=== PATIENT | male | born 1990 | race Two or more races ===

== ENCOUNTER 2019-09-22 21:27 | Emergency (ER) | payer BC, MEDICAID ==
[~2019-09-22] VITALS: Ht 180.3 cm; Wt 72.6 kg
[2019-09-22 21:28] VITALS: BP_SYST 120
--- NOTE | 2019-09-22 21:28 | NUR ---
Patient to [facility] for evaluation. Side rails up.
--- NOTE | 2019-09-22 21:30 | NUR ---
ER Dr. Montgomery at bedside examining patient.
--- NOTE | 2019-09-22 21:31 | NUR ---
Patient brought in by [facility]'s department for medical clearance. Patient reports taking heroine and abrasions on face. denies any pain. No other complaints/injuries per patient or as noted. Will continue to monitor.
--- NOTE | 2019-09-22 21:49 | NUR ---
Patient and deputy given written and verbal discharge instructions and verbalizes understanding. ER MD discussed with patient the results and treatment provided. Patient in stable condition. ID arm band removed. No Rx given. Patient educated on pain management and to follow up with PMD. Pain Scale 0/10 Opportunity for questions provided and answered. Medication side effect fact sheet provided.
[2019-09-22] MEDS ORDERED: BACITRACIN 1 GM OINT TP ONE (22:00)
[2019-09-22 23:15] VITALS: BP_SYST 120
== END 2019-09-22 21:49 ==
LOC: SED 21:27
DX: F11.10 Opioid abuse, uncomplicated (principal); F15.10 Other stimulant abuse, uncomplicated; F17.210 Nicotine dependence, cigarettes, uncomplicated; Z13.89 Encounter for screening for other disorder; Z02.89 Encounter for other administrative examinations; Z88.0 Allergy status to penicillin
CPT/HCPCS: 99283

== ENCOUNTER 2023-01-01 14:22 | Inpatient (IN) | payer MEDICAID ==
[~2023-01-01] VITALS: Ht 180.3 cm; Wt 65.3 kg
[2023-01-01 14:46] VITALS: BP_SYST 131
--- NOTE | 2023-01-01 14:54 | NUR ---
PT BIBA FOR RIGHT FOOT PAIN. PT IS AWAKE, A/O X4 AND VERBALLY RESPONSIVE. PT REPORTS HAVING RIGHT FOOT PAIN AND SWELLING X 1 WEEK, HOWEVER PAIN HAS NOW WORSENED. RIGHT FOOT NOTED WITH REDNESS AND SWELLING AND MULTIPLE SCABS TO DORSAL ASPECT OF RIGHT FOOT AND SWELLING TO RIGHT ANKLE. PT DENIES ANY RECENT INJURIES. PT PLACED IN BED 4. MD HARRISON MADE AWARE. SAFETY MEASURES IN PLACE
[2023-01-01] MEDS ORDERED: NACL 0.9% 1,000 ML IV ONE (15:00)
--- NOTE | 2023-01-01 15:07 | NUR ---
ER at bedside examining patient.
--- NOTE | 2023-01-01 15:48 | NUR ---
# 22 gauge angiocath placed to Left wrist. Use of asceptic technique. Opsite placed over site. Blood return noted. Flushed with 10 cc of normal saline. No evidence of infiltration noted. Patient tolerated well.
[2023-01-01] MEDS ORDERED: VANCOMYCIN HCL 1000 MG/VIAL IV ONE (15:56)
[2023-01-01] MEDS ORDERED: VANCOMYCIN HCL 1,000 MG in D5W 250 ML IV ONE (16:00)
[2023-01-01] MEDS ORDERED: MORPHINE 4 MG INJ. 4 MG/ML VIAL IVP ONE (16:00)
[2023-01-01 16:24] LABS: HEMATOCRIT 33.5 % (36-54); HEMOGLOBIN 11.6 g/dL (14.0-18.0); MEAN CORPUSCULAR HEMOGLOBIN 29 pg (27-31); MEAN CORPUSCULAR HGB CONC 35 % (32-36); MEAN CORPUSCULAR VOLUME 82 fL (79.0-98.0); PLATELET COUNT (AUTO) 623 K/uL (130-430); RED BLOOD CELL COUNT(AUTO) 4.08 MIL/uL (4.2-6.2); RED CELL DISTRIBUTION WIDTH 13.6 % (9.0-15.0)
[2023-01-01 16:33] LABS: ANION GAP 8 (5-15); CALCIUM 8.7 mg/dL (8.4-11.0); CHLORIDE 90 mmol/L (98-107); CREATININE 1.08 mg/dL (0.55-1.30); GLUCOSE 84 mg/dL (70-99); UREA NITROGEN, BLOOD 11 mg/dL (8-21)
[2023-01-01 16:35] LABS: GFR AFRICAN AMERICAN 103 mL/min (>90)
[2023-01-01 16:36] LABS: BAND % (MANUAL) 4 % (0-6)
[2023-01-01 16:37] LABS: BASOPHILS % (MANUAL) 0 % (0-2); EOSINOPHILS % (MANUAL) 2 % (0-7); LYMPHOCYTES % (MANUAL) 16 % (20-46); METAMYELOCYTES % 1 % (0-0); MONOCYTES % (MANUAL) 3 % (0-11)
[2023-01-01 16:40] LABS: ALANINE AMINOTRANSFERASE 78 U/L (12-78); ALBUMIN 1.7 g/dL (3.4-4.8); ASPARTATE AMINOTRANSFERASE 90 U/L (10-37); TOTAL BILIRUBIN 0.3 mg/dL (0.0-1.0)
--- NOTE | 2023-01-01 18:20 | NUR ---
PT AWAKE IN [facility], NO ACUTE DISTRESS. BREATHING EVEN AND UNLABORED. SAFETY MEASURES IN PLACE. NO CHANGES AT THIS TIME
--- NOTE | 2023-01-01 19:09 | NUR ---
report given to josie LLANOS to continue care of pt
--- NOTE | 2023-01-01 19:37 | NUR ---
PATIENT RESTING IN BED, UPDATED ON PLAN OF CARE, NO S/S OF ANY DISTRESS NOTED AT THIS TIME. REMAINS AOX4, RIGHT FOOT REDNESS AND SWELLING NOTED. SET UP FOR PM CARE. PATIENT AWARE WILL BE ADMITTED TO THE HOSPITAL, AWAITING ROOM ASSIGNMENT.
--- NOTE | 2023-01-01 20:39 | NUR ---
PATIENT RESTING, REMAINS EASY TO AROUSE, NO C/O AT THIS TIME.
--- NOTE | 2023-01-01 21:53 | NUR ---
CONTINUES TO REST WITHOUT ANY C/O PAIN OR DISCOMFORT AT THIS TIME.
--- NOTE | 2023-01-01 22:56 | NUR ---
Admit bed requested Patient will be admitted to care of . Admitted to MED SURG unit. Diagnosis CELLULITIS Inpatient (Yes or No) Y Observation (Yes or No) N Orientation concerns or request close to nursing station (Yes or No) N Covid Status NEG On vent or bipap N Isolation requirements N Needs a sitter N From Home (Yes or if No enter name of facility) Y Requires Dialysis (Yes or No) N Med Rec Completed (Yes of No) Y
--- NOTE | 2023-01-01 23:00 | NUR ---
PATIENT INFORMED WILL BE ADMITTED HERE, AWAITING ROOM ASSIGNMENT.
[2023-01-01] MEDS: NACL 0.9% 1,000 ML IV SCH (23:09)
--- NOTE | 2023-01-01 23:26 | NUR ---
IVF INFUSING PER ORDER.
[2023-01-02] MEDS ORDERED: CLINDAMYCIN 600 mg/50mL D5W 50 ML IV SCH (00:05)
[2023-01-02 00:38] VITALS: BP_SYST 126
[2023-01-02 00:55] VITALS: BP_SYST 134
--- NOTE | 2023-01-02 01:01 | NUR ---
Patient arrived via gurney from ER to hospital room 116B. Patient c/o right foot wound. Alert and oriented x4. Respiration even and unlabored. No shortness of breath. No c/o pain. Patient able to ambulate parts of his body from the gurney to bed. Vital signs stable. Patient has belongings at bedside that are his clothes. Chart brought from ER to nursing station. Patient educated on hospital floor. Communicated with ROMI Woo regarding patient. Pictures taken. Will continue to monitor.
[2023-01-02] MEDS: ACETAMINOPHEN 325 MG TABLET PO PRN (02:27)
[2023-01-02] MEDS ORDERED: CLINDAMYCIN 600 mg/50mL D5W 50 ML IV ONE (02:29)
[2023-01-02 04:00] VITALS: BP_SYST 124
[2023-01-02] MEDS ORDERED: VANCOMYCIN HCL 1 GM/NS PREMIX 250 ML IV ONE (04:00)
--- NOTE | 2023-01-02 05:23 | NUR ---
Consultation Paged Reason for Consultation: RIGHT FOOT CELLULITIS Was consult called: Y Person who was notified: Angelito Consulting Physician: Segun Zavala Ordering Physician: Dr. Anthony
[2023-01-02 06:13] LABS: BASOPHILS # (AUTO) 0.1 K/uL (0.0-0.2); BASOPHILS % (AUTO) 0.4 % (0.0-2.0); EOSINOPHILS # (AUTO) 0.2 K/uL (0.0-0.4); EOSINOPHILS % (AUTO) 1.4 % (0.0-4.0); HEMATOCRIT 33.4 % (36-54); HEMOGLOBIN 11.5 g/dL (14.0-18.0); LYMPHOCYTES # (AUTO) 2.8 K/uL (1.0-5.5); LYMPHOCYTES % (AUTO) 16.6 % (20.5-51.5); MEAN CORPUSCULAR HEMOGLOBIN 28 pg (27-31); MEAN CORPUSCULAR HGB CONC 34 % (32-36); MEAN CORPUSCULAR VOLUME 82 fL (79.0-98.0); MONOCYTES # (AUTO) 1.2 K/uL (0.0-1.0); NEUTROPHILS # (AUTO) 12.6 K/uL (1.8-7.7); NEUTROPHILS % (AUTO) 74.6 % (40.0-70.0); PLATELET COUNT (AUTO) 532 K/uL (130-430); RED BLOOD CELL COUNT(AUTO) 4.06 MIL/uL (4.2-6.2); RED CELL DISTRIBUTION WIDTH 13.6 % (9.0-15.0); WHITE BLOOD COUNT (AUTO) 16.9 K/uL (4.8-10.8)
[2023-01-02 06:32] LABS: CALCIUM 8.6 mg/dL (8.4-11.0); CREATININE 0.95 mg/dL (0.55-1.30)
--- NOTE | 2023-01-02 07:01 | NUR ---
receve the patient from the nursing home social worker rn in rm 115B aox4 admitting diagnosis of right lower leg swelling . will continue to monitor
--- NOTE | 2023-01-02 07:07 | NUR ---
Dr. Anthony made aware of sodium levels of patient.
[2023-01-02 08:00] VITALS: BP_SYST 104
--- NOTE | 2023-01-02 11:18 | NUR ---
Called Dr. Lerma, at , multiple times in regards to consultation. No answer. Left message.
--- NOTE | 2023-01-02 11:33 | NUR ---
Consultation Paged and spoke to Dr. Henry. made aware of consultation.
[2023-01-02] MEDS: HEPARIN SODIUM,PORCINE 5,000 UNITS/ML VIAL SUBCUT SCH ×2 (11:34→22:34)
[2023-01-02] MEDS: PANTOPRAZOLE SODIUM 40 MG TAB PO SCH (11:34)
[2023-01-02] MEDS: VANCOMYCIN HCL 1,000 MG in NS 250 ML IV SCH (16:24)
[2023-01-02] MEDS: NACL 0.9% 1,000 ML IV SCH (16:26)
[2023-01-02] MEDS: HYDROcodone/ACETAMIN 5-325 MG TAB (NORCO/ VICODIN) PO PRN (16:26)
--- NOTE | 2023-01-02 18:39 | NUR ---
will endorse to operation shift supervisor rn for continuity of care
--- NOTE | 2023-01-03 01:43 | NUR ---
HAD MODERATE AMOUNT BLACK WATERRY DIARRHEA. PERINEAL CARE GIVEN. LINENS CHANGED.
[2023-01-03] MEDS: HYDROcodone/ACETAMIN 5-325 MG TAB (NORCO/ VICODIN) PO PRN ×4 (01:51→21:06)
[2023-01-03] MEDS: VANCOMYCIN HCL 1,000 MG in NS 250 ML IV SCH ×2 (06:04→17:39)
--- NOTE | 2023-01-03 08:04 | NUR ---
OPENING NOTES: RECEIVED BEDSIDE SBAR FROM PM SHIFT NURSE, PATIENT RESTING IN BED WITH EYES CLOSED NO S/S OF ANY DISTRESS, BED IN LOW AND LOCKED POSITION, CALL LIGHT IN REACH, ALL SAFETY CHECKS DONE AND WILL DO THOUGHT THE DAY. WILL MONITOR PATIENT THOUGHT THE DAY.
[2023-01-03] MEDS: PANTOPRAZOLE SODIUM 40 MG TAB PO SCH (09:54)
[2023-01-03] MEDS: HEPARIN SODIUM,PORCINE 5,000 UNITS/ML VIAL SUBCUT SCH ×2 (09:56→21:07)
[2023-01-03] MEDS: NACL 0.9% 1,000 ML IV SCH (15:00)
--- NOTE | 2023-01-03 20:00 | NUR ---
OPENING Patient resting in bed, no distress noted. IV fluids infusing as ordered. Wound and swelling noted to right foot. Patient AOx4. Call light in reach, bed low and locked.
[2023-01-03 20:11] VITALS: BP_SYST 127
--- NOTE | 2023-01-03 21:06 | NUR ---
Hornick PRN given for report of pain to right ankle/foot.
[2023-01-04 01:39] VITALS: BP_SYST 116
--- NOTE | 2023-01-04 02:36 | NUR ---
ROUNDS Patient sleeping in bed, unlabored breathing on room air. IV fluids infusing. Safety precautions in place.
--- NOTE | 2023-01-04 06:00 | NUR ---
Patient had episode of brown diarrhea. Gown and linens changed. Patient refused labs until after being cleaned. Certified Medical Dosimetrist said [facility].
[2023-01-04] MEDS: HYDROcodone/ACETAMIN 5-325 MG TAB (NORCO/ VICODIN) PO PRN ×3 (07:10→21:08)
[2023-01-04] MEDS: VANCOMYCIN HCL 1,000 MG in NS 250 ML IV SCH (07:10)
--- NOTE | 2023-01-04 07:15 | NUR ---
Patient stated he is on felony parole and has to check in on 01/06. He said he usually goes in person (Meghan) but thinks he can call. He does not have the phone number or a personal cell phone.
--- NOTE | 2023-01-04 08:11 | NUR ---
CLOSING Patient resting in bed, unlabored breathing on room air. Given Molena PRN for pain to right foot/ankle. Small scab noted to left ankle that patient stated was from his shoes. Right foot swollen and erythematous with small dark scab. Elevated on pillow. Vancomycin administered after vanco trough drawn this morning. Safety precautions in place. Endorsed to oncoming nurse.
[2023-01-04 08:13] VITALS: BP_SYST 172
[2023-01-04] MEDS: PANTOPRAZOLE SODIUM 40 MG TAB PO SCH (09:54)
[2023-01-04] MEDS: HEPARIN SODIUM,PORCINE 5,000 UNITS/ML VIAL SUBCUT SCH ×2 (09:56→21:21)
[2023-01-04] MEDS: ACETAMINOPHEN 325 MG TABLET PO PRN (09:58)
[2023-01-04 11:25] VITALS: BP_SYST 117
[2023-01-04] MEDS: VANCOMYCIN HCL 750 MG in NS 250 ML IV SCH ×2 (15:32→23:50)
[2023-01-04 15:45] VITALS: BP_SYST 112
--- NOTE | 2023-01-04 19:30 | NUR ---
OPENING NOTE Pt is awake lying in bed. No s/s of respiratory distress. Breathing even and unlabored on RA. IV site intact and patent with fluids running at ordered rate. Fall and safety precautions in place with bed in lowest position, bed alarm on, and call light within reach
[2023-01-04 20:00] VITALS: BP_SYST 133
--- NOTE | 2023-01-05 00:15 | NUR ---
ROUNDS Pt is lying in bed, eyes closed. Breathing even and unlabored. Fall and safety checks in place
[2023-01-05 00:32] VITALS: BP_SYST 125
[2023-01-05] MEDS: HYDROcodone/ACETAMIN 5-325 MG TAB (NORCO/ VICODIN) PO PRN ×4 (01:12→21:25)
[2023-01-05] MEDS: NACL 0.9% 1,000 ML IV SCH (04:30)
[2023-01-05] MEDS: VANCOMYCIN HCL 750 MG in NS 250 ML IV SCH ×3 (07:18→22:12)
--- NOTE | 2023-01-05 07:30 | NUR ---
CLOSING NOTE Pt is awake lying in bed. No s/s of respiratory distress. Breathing even and unlabored on RA. IV site intact and patent with fluids running at ordered rate. All needs met throughout shift. Fall and safety precautions in place with bed in lowest position, bed alarm on, and call light within reach
[2023-01-05 07:46] LABS: ALBUMIN 1.9 g/dL (3.4-4.8); BASOPHILS % (AUTO) 0.5 % (0.0-2.0); CALCIUM 9.4 mg/dL (8.4-11.0); CREATININE 0.88 mg/dL (0.55-1.30); EOSINOPHILS % (AUTO) 0.4 % (0.0-4.0); HEMATOCRIT 35.8 % (36-54); HEMOGLOBIN 12.5 g/dL (14.0-18.0); LYMPHOCYTES # (AUTO) 2.8 K/uL (1.0-5.5); LYMPHOCYTES % (AUTO) 33.1 % (20.5-51.5); MEAN CORPUSCULAR HEMOGLOBIN 28 pg (27-31); MEAN CORPUSCULAR HGB CONC 35 % (32-36); MEAN CORPUSCULAR VOLUME 81 fL (79.0-98.0); MONOCYTES # (AUTO) 0.4 K/uL (0.0-1.0); MONOCYTES % (AUTO) 4.3 % (1.7-9.3); NEUTROPHILS # (AUTO) 5.2 K/uL (1.8-7.7); NEUTROPHILS % (AUTO) 61.7 % (40.0-70.0); PLATELET COUNT (AUTO) 520 K/uL (130-430); RED CELL DISTRIBUTION WIDTH 13.5 % (9.0-15.0); TOTAL BILIRUBIN 0.2 mg/dL (0.0-1.0); WHITE BLOOD COUNT (AUTO) 8.4 K/uL (4.8-10.8)
[2023-01-05 08:00] VITALS: BP_SYST 130
--- NOTE | 2023-01-05 08:00 | NUR ---
Start of shift Pt sitting up in bed eating his breakfast. No pain/discomfort noted at this time. Left wrist IV site benign and patent infusing IVF's well. No needs noted at this time. Call light within reach.
[2023-01-05] MEDS: PANTOPRAZOLE SODIUM 40 MG TAB PO SCH (08:30)
[2023-01-05] MEDS: HEPARIN SODIUM,PORCINE 5,000 UNITS/ML VIAL SUBCUT SCH ×2 (08:31→21:29)
[2023-01-05 12:00] VITALS: BP_SYST 127
[2023-01-05] MEDS ORDERED: NALOXONE HCL 0.4 MG/ML AMP (NARCAN) IVP PRN (15:00)
--- NOTE | 2023-01-05 15:35 | NUR ---
Note Dr Anthony was called and called back, for pt's request of increase of pain medication and probiotic. Orders received at this time.
[2023-01-05 16:00] VITALS: BP_SYST 120
--- NOTE | 2023-01-05 18:25 | NUR ---
Note Pt sitting up in bed eating his dinner. IV in left wrist intact and patent infusing IVF's well. No severe pain/discomfort noted at this time. Call light within reach. Right foot elevated on pillow and no needs noted at this time.
[2023-01-05 20:00] VITALS: BP_SYST 137
[2023-01-05] MEDS: LACTOBACILLUS RHAMNOSUS GG 1 CAP CAPSULE PO SCH (21:30)
--- NOTE | 2023-01-05 22:00 | NUR ---
DIETARY RECOMMENDATION: SHAHNAZ DIETITIAN CAME TO ME AND STATED SHE ASSESSED THE PT AND FOUND OUT THAT PT IS NOT EATING WELL .SHE REQUESTED ME TO ENTER GLUCERNA BID ORAL SUPPLEMENT , ORDER ENTERED PER DIETITIANS REQUEST .
--- NOTE | 2023-01-05 22:47 | NUR ---
01/05/23 RD Recommendation *Continue on regular diet to help with meeting needs -Monitor Glu labs/PO intake for need for [facility] diet modifier *Recommend Glucerna BID to help with meeting nutrient needs *Monitor and evaluate PO intake, weight trends, GI, skin, labs Refer to Nutrition Assessment for full details BEREKET CASTRO Addendum: 01/05/23 at [address] Amended: Links added.
[2023-01-06] VITALS: BP_SYST 129
[2023-01-06] MEDS: HYDROcodone/ACETAMIN 5-325 MG TAB (NORCO/ VICODIN) PO PRN ×4 (03:46→22:23)
[2023-01-06] MEDS: NACL 0.9% 1,000 ML IV SCH ×2 (03:47→21:10)
[2023-01-06] MEDS: VANCOMYCIN HCL 750 MG in NS 250 ML IV SCH ×3 (05:52→21:09)
[2023-01-06 08:33] VITALS: BP_SYST 115
[2023-01-06] MEDS: PANTOPRAZOLE SODIUM 40 MG TAB PO SCH (08:40)
[2023-01-06] MEDS: LACTOBACILLUS RHAMNOSUS GG 1 CAP CAPSULE PO SCH ×2 (08:40→21:10)
[2023-01-06] MEDS: HEPARIN SODIUM,PORCINE 5,000 UNITS/ML VIAL SUBCUT SCH ×2 (08:42→21:18)
[2023-01-06 12:00] VITALS: BP_SYST 116
--- NOTE | 2023-01-06 14:00 | NUR ---
Provider notification as per Die Setter request and confirming with patient his concerns that he does not have diabetes, he would like cream for his right foot scab he says came off this afternoon and also would like to have sexual transmitted disease tests. . Orders per Doctor Raj.
[2023-01-06] MEDS ORDERED: BACITRACIN 1 GM OINT TP ONE (14:15)
[2023-01-06 20:05] VITALS: BP_SYST 125
[2023-01-07 02:00] VITALS: BP_SYST 128
[2023-01-07] MEDS: VANCOMYCIN HCL 750 MG in NS 250 ML IV SCH ×2 (05:19→13:32)
[2023-01-07] MEDS: HYDROcodone/ACETAMIN 5-325 MG TAB (NORCO/ VICODIN) PO PRN (05:20)
[2023-01-07] MEDS ORDERED: BACITRACIN 1 GM OINT TP SCH (09:00)
[2023-01-07] MEDS: PANTOPRAZOLE SODIUM 40 MG TAB PO SCH (09:38)
[2023-01-07] MEDS: LACTOBACILLUS RHAMNOSUS GG 1 CAP CAPSULE PO SCH (09:38)
[2023-01-07] MEDS ORDERED: BACITRACIN ZINC 15 GM TOPICAL OINTMENT TP ONE (11:00)
--- NOTE | 2023-01-07 11:20 | NUR ---
aptt ORDER DISCONTINUED DUE TO NOT NEEDED PRIOR TO HEPARIN INJECTION
[2023-01-07] MEDS: HEPARIN SODIUM,PORCINE 5,000 UNITS/ML VIAL SUBCUT SCH (11:46)
[2023-01-07 12:18] VITALS: BP_SYST 122
--- NOTE | 2023-01-07 14:15 | NUR ---
ANOTHER FOLLOW UP CALL TO UNDERWATER HUNTER TRAPPER DR MAKENZIE JUAREZ, RE: R FOOT CELLULITIS. CONSULT WAS FIST CALLED ON THE December. LEFT A VOICE MESSAGE, OFFICE IS ONLY OPEN FROM 0800 TO 1400 DURING AND .
[2023-01-07] MEDS ORDERED: LEVO750T64 PO (14:22)
[2023-01-07 14:30] VITALS: BP_SYST 135
--- NOTE | 2023-01-07 14:30 | NUR ---
WOUND EVALUATION: Late note for 01/07/2023 at 1430 secondary to patient care. Wound Consult received from Dr. Anthony. Thank you, Dr. Anthony, for the consult. Patient received in a [place] Bed with an Isoflex mattress, awake, alert, and oriented. Patient is unable to turn independently. Ok Score is a 19. Past Medical History: Diabetes Mellitus Type 2. Recent Labs: WBC 8.4, RBC 4.40, hemoglobin 12.5, hematocrit 35.8, potassium 3.4, glucose 115, alkaline phosphatase 237, serum total protein 9.0, albumin 1.9. Intrinsic factors that delay wound healing: Diabetes mellitus. Extrinsic factors that delay wound healing: Decreased mobility. Microbiology: Blood culture results x2 negative. Urine culture results negative. Wound Assessment: 1. Right Dorsal Foot near Second Metatarsal Bone: Diabetic/neuropathic ulcer, present on admission. Wound bed has 90% red tissue, 10% yellow tissue. No odor, scant yellow drainage. Periwound intact. Malleolus has edema and mild calor. Foot has dry scaly skin. Wound measures 1.7 cm x 0.9 cm x 0.3 cm. Recommend: Cleanse wound with normal saline. Apply moisture barrier cream to marie-wound. Apply Venelex ointment to bed. Cover with foam dressing. Wrap with elastic bandage around foot and ankle to help decrease edema. Perform wound care daily, and as needed for dressing soiling or dislodgement. Apply Eucerin cream to dry skin areas twice daily after dressing is placed but before it is wrapped with elastic bandage. 2. Left Lateral Heel, Inferior to Malleolus: Wound, present on admission. Wound bed has 100% brown scab. No odor, no drainage. Dry, stable. Scar tissue and dry flaky skin surrounding. Foot has dry scaly skin. Wound measures 0.5 cm x 0.6 cm. Recommend: [place] site with Betadine. Allow Betadine to air dry. Cover site with foam dressing. Offload site at all times. Apply Eucerin cream to dry skin areas twice daily. Also recommend: Encourage and assist patient as needed with repositioning every 2 hours with pillow support and off-load pressure areas with pillows for pressure re-distribution. Offload, elevate and float bilateral heels with pillows. Perform skin care and monitor skin integrity Q shift. Use moisture barrier cream on buttocks and other moisture susceptible areas QID and as needed for soiling.
[2023-01-07 14:36] VITALS: BP_SYST 122
[2023-01-07] MEDS ORDERED: BALSAM PERU/CASTOR OIL 56.7 GM OINT...G. TP ONE (15:00)
[2023-01-07] MEDS ORDERED: LANOLIN ALCOHOL/MO/W.PET/CERES 57 GM CREAM..G. TP ONE (15:00)
--- NOTE | 2023-01-07 15:22 | NUR ---
PHYSICAL THERAPY CO-SIGN The Physical Therapy Progress Notes documented by Supervisor Electrolytic Tinning have been reviewed. Reviewed/Co-Signed by: Sergei Kraft Documentation Done by:JANE ENGLE Addendum: 01/07/23 at 1522 by Sergei Kraft PT Amended: Links added.
--- NOTE | 2023-01-07 18:01 | NUR ---
1636 PATIENT LEFT WITH NO S/SX OF DISTRESS, BREATHING EVEN AND UNLABORED, NO C/O PAIN. VITAL SIGNS WNL. PATIENT LEFT WITH MEDICATION PRESCRIPTION, EDUCATED ON MEDICATION AND VERBALIZES UNDERSTANDING. PATIENT VERBALIZES OF WOUND CARE MANAGEMENT AND PREVENTION. PATIENT LEFT WITH MOTHER EMMA IN PRIVATE VEHICLE. LEFT WITH ALL BELONGINGS AND IV ACCESS REMOVED NO BLEEDING PRESENT. PATIENT DENIES NEED FOR CRUTCHES PER PT PT IS INDEPENDENT. PATIENT ABLE TO AMBULATE INDEPENDTLY. Addendum: 01/07/23 at 1935 by [employer], ROMI LLANOS SPOKE TO WEBSPHERE PORTAL ARCHITECT DR SCHAEFER, PER DR. JUAREZ HE IS DENYING CONSULT BECAUSE INSURANCE DOES NOT COVER CONSULTS HERE, PATIENT MADE AWARE AND MADE AWARE NEED TO ARRANGE PODIATRY CONSULT, VERBALIZES UNDERSTANDING
[2023-01-07] MEDS ORDERED: LANOLIN ALCOHOL/MO/W.PET/CERES 57 GM CREAM..G. TP SCH (21:00)
[2023-01-08] MEDS ORDERED: BALSAM PERU/CASTOR OIL 56.7 GM OINT...G. TP SCH (09:00)
[2023-01-08] MEDS ORDERED: BACITRACIN ZINC 15 GM TOPICAL OINTMENT TP SCH (09:00)
--- NOTE | 2023-01-08 13:56 | NUR ---
Lead Material Handler Late Entry SUPERVISOR ANODIZING attempted to meet with pt. on 01/04/23, reported to be homeless, drug user. SUPERVISOR ANODIZING recognized this name. Pt. had been a [place] a couple of weeks ago. SUPERVISOR ANODIZING introduced self to pt. but pt. was not amenable to this interview. Pt. stated he was groggy and did not want to talk at this time. SUPERVISOR ANODIZING asked Pt. if she could leave some resources for him and she will come back to speak with him later. Pt. stated it was ok to leave resources that included a couple of homeless packets with resources for shelters, food alexandra, health clinics, mental health therapy and hotlines numbers. SUPERVISOR ANODIZING met with pt on 01/06/23 at bedside. Pt. looks so much better, was alert, oriented, talkative and agreeable to this interview. Pt. confirmed he was homeless and lived in a tent behind [facility]. Pt feels he was bitten by a spider and the bite became infected and now has cellulitis. Pt. stated he cannot go home to live with his mom who lives in an apt. because the vagr. does not want him there. He is a convicted felon. and he cannot reside with mom. Pt. admitted to being a drug user and wants to look into a substance abuse program. He has a plan to move to [place] where his two brothers and sister reside and have offered to help him. Pt. cannot go right now because he is on parole. In May, parol officer Roberto will try to get charges dropped and then he can go to [place]. Pt. denied being suicidal. SUPERVISOR ANODIZING asked pt. to seek out therapy. SUPERVISOR ANODIZING encouraged pt. to get into counseling, a drug program and make a concrete plan to get to [place]. Pt. stated he was going to call his mom for more support. SUPERVISOR ANODIZING provided pt. with clothing, numerous resources and let him know he can ask for an Uber back to his tent. SUPERVISOR ANODIZING will remain available as needed. Upon discharge on 01/07, pts. mom came to pick him up.
[2023-01-08 20:06] LABS: FTA-Ab (T PALLIDUM) Non Reactive (Non Reactive)
== END 2023-01-07 16:36 | disposition home or self-care (01) | DRG 720 ==
LOC: SED 14:22 → SMU 22:48
PROVIDERS: ADMIT Internal Medicine; ATTEND Internal Medicine
DX: A41.9 Sepsis, unspecified organism (principal); E43 Unspecified severe protein-calorie malnutrition; L03.115 Cellulitis of right lower limb; Z20.822 Contact with and (suspected) exposure to COVID-19; E11.9 Type 2 diabetes mellitus without complications; Z88.0 Allergy status to penicillin
CPT/HCPCS: 36415; 71045; 80048; 80053; 80202; 83605; 83880; 84484; 85007; 85025; 85027; 86592; 86780; 87040; 87086; 87491; 93005; 93970; 97110-GP; 97116-GP; 97530-GP; 99285; J1644; J1956; J2270; J3370; J3490; J7050

== ENCOUNTER 2023-01-26 11:59 | Emergency (ER) | payer MEDICAID ==
[~2023-01-26] VITALS: Ht 175.3 cm; Wt 73.0 kg
[~2023-01-26 11:59] MED LIST: LEVO750T64 PO
[2023-01-26 12:08] VITALS: BP_SYST 148
[2023-01-26] MEDS ORDERED: SULF1TAB48 PO (12:43)
[2023-01-26 12:47] VITALS: BP_SYST 123
== END 2023-01-26 12:45 | disposition home or self-care (01) ==
LOC: SED 11:59
DX: L03.115 Cellulitis of right lower limb (principal); R22.41 Localized swelling, mass and lump, right lower limb; E11.9 Type 2 diabetes mellitus without complications; Z88.0 Allergy status to penicillin; Z79.899 Other long term (current) drug therapy
CPT/HCPCS: 99283